=== PATIENT | female | born 1970 | race African-American/Black ===

== ENCOUNTER 2017-02-17 17:33 | Emergency (ER) | payer SELFPAY ==
[~2017-02-17] VITALS: Ht 167.6 cm; Wt 144.5 kg
[2017-02-17 17:35] VITALS: BP 181/89; PULSE 73; RESP 15; TEMP 99.1; O2SAT 99
[2017-02-17] MEDS ORDERED: oxyCODONE/ACETAMINOPHEN 5 MG/325 MG TAB PO ONE (18:00)
[2017-02-17] MEDS ORDERED: PENICILLIN V POTASSIUM 500 MG TAB PO ONE (18:00)
[2017-02-17] MEDS ORDERED: PENI500T PO (18:11)
[2017-02-17] MEDS ORDERED: PERC5TAB12 PO (18:11)
--- NOTE | 2017-02-17 18:11 | PD ---
HPI Chief Complaint: Oral / Dental Pain or Problem Time Seen by Provider: 17:50 Travel History International Travel<30 days: No Contact w/Intl Traveler<30days: No Traveled to known affect area: No History of Present Illness HPI Patient is a 46-year-old female who presents to emergency room with complaints of possible tooth infection. Patient reports that she had a wisdom tooth removed in the left lower molar on Sunday in her country of [facility]. Patient reports that she is here her vacation and began to develop pain and sensitivities to the bottom left upper tooth. Patient did contact her dentist at home and was instructed to seek medical attention for possible infection. Patient with no fever or chills, no nausea or vomiting. Patient reports that she has been taking acetaminophen as well as ibuprofen for pain with slight relief of symptoms. [facility] Past Medical History Medical History: Denies Significant Hx ?: Not LMP: 01/10/17 Past Surgical History Oral Surgery: Yes (wisdom teeth extraction) Social History Alcohol Use: Yes (occ) Tobacco Use: No Substance Use: No Allergies-Medications (Allergen,Severity, Reaction): Coded Allergies: No Known Allergies (Verified Allergy, Unknown, 02/17/17) Reported Meds & Prescriptions Reported Meds & Active Scripts Active No Active Prescriptions or Reported Medications Review of Systems General / Constitutional: No: Fever Eyes: No: Visual changes HENT: Positive: Dental Difficulties, No: Headaches Cardiovascular: No: Chest Pain or Discomfort Respiratory: No: Shortness of Breath Gastrointestinal: No: Abdominal Pain Genitourinary: No: Dysuria Musculoskeletal: No: Pain Skin: No Rash Neurologic: No: Weakness Psychiatric: No: Depression Endocrine: No: Polydipsia Hematologic/Lymphatic: No: Easy Bruising Physical Exam Narrative GENERAL: Well-nourished, well-developed patient. SKIN: Focused skin assessment warm/dry. HEAD: Normocephalic. EYES: No scleral icterus. No injection or drainage. Mouth: patient with poor dentition, patient with pain to left lower molar NECK: Supple, trachea midline. No JVD or lymphadenopathy. CARDIOVASCULAR: Regular rate and rhythm without murmurs, gallops, or rubs. RESPIRATORY: Breath sounds equal bilaterally. No accessory muscle use. GASTROINTESTINAL: Abdomen soft, non-tender, nondistended. MUSCULOSKELETAL: No cyanosis, or edema. BACK: Nontender without obvious deformity. No CVA tenderness. Data Data Last Documented VS Vital Signs Date Time Temp Pulse Resp B/P (MAP) Pulse Ox O2 Delivery O2 Flow Rate FiO2 02/17/17 17:35 99.1 73 15 181/89 (119) 99 Orders Orders Penicillin V Potassium (Veetids) (02/17/17 18:00) Oxycodone-Acetamin 5-325 Mg (Percocet (02/17/17 18:00) MDM Medical Decision Making Medical Screen Exam Complete: Yes Emergency Medical Condition: Yes Medical Record Reviewed: Yes Interpretation(s) Vital Signs Date Time Temp Pulse Resp B/P (MAP) Pulse Ox O2 Delivery O2 Flow Rate FiO2 02/17/17 17:35 99.1 73 15 181/89 (119) 99 Differential Diagnosis tooth infection/dental pain Narrative Course 46-year-old female who presents to emergency room with complaints of dental pain s/p wisdom tooth extraction. Plan to treat for possible infection. She will follow up with her dentist when she goes back home. She will return to ER as needed Diagnosis Primary Impression: Pain, dental Patient Instructions: Narcotic given in the ED, General Instructions Additional Instructions: Please follow up with your dentist as soon as possible Please return to ER as needed Please take all medications as prescribed Please do not drive while taking narcotic pain medications Med/Other Pt SpecificInfo: Prescription(s) given Scripts Penicillin V Potassium (Penicillin V Potassium) 500 Mg Tab 500 MG PO Q6H for Infection for 10 Days, #40 TAB 0 Refills Prov: Ade Puente DO 02/17/17 Oxycodone-Acetaminophen (Percocet) 5-325 mg Tab 1 TAB PO Q6H Y for PAIN, #10 TAB 0 Refills Prov: Ade Puente DO 02/17/17 Disposition: 01 DISCHARGE HOME Condition: Stable Ade Puente DO Feb 17, 2017 18:11
== END 2017-02-17 18:32 | disposition home or self-care (01) ==
LOC: NEPD 17:33
DX: K08.89 Other specified disorders of teeth and supporting structures (principal)
CPT/HCPCS: 99284